=== PATIENT | female | born 2000 | race Caucasian/White ===

== ENCOUNTER 2019-08-20 00:38 | Emergency (ER) | payer MEDICAID, SELFPAY ==
[2019-08-20 00:39] VITALS: BP 125/81; PULSE 71; RESP 16; TEMP 36.7; O2SAT 99; BMI 27.4
--- NOTE | 2019-08-20 01:15 | ED.VIS.GEN ---
History of Present Illness Chief Complaint: Dental Informant: Patient Narrative: Presents with right upper dental pain on and off for the last month. Over the last week it is been more continuous. She has a cavity. She is going to walk into her dentist office on Thursday. She has been using Tylenol and Orajel with minimal relief. Comes in for further evaluation. Current severity is mild to moderate. Past Medical History - Allergies and Home Meds Allergies/Adverse Reactions: Allergies carbamazepine [From Tegretol] Allergy (Verified 08/20/19 00:41) Unknown lithium Allergy (Verified 08/20/19 00:41) Unknown risperidone Allergy (Verified 08/20/19 00:41) Unknown Primary Care Physician: NOT,DEFINED [Primary Care Provider] - Prior records reviewed: Yes Past Medical History: None Surgical History: noncontributory Lives: With Family Smoking Status: Former smoker Alcohol: None Drugs: None Review of Systems General: Denies: Chills, Fever, Sweats Eyes: Denies: Visual changes - bilaterally, Diplopia ENT: Denies: Rhinorrhea, Sore throat Cardiovascular: Denies: Chest pain, Palpitations Respiratory: Denies: Dyspnea, Cough, Dyspnea on exertion Gastrointestinal: Denies: Abdominal pain, Nausea, Vomiting, Diarrhea, Melena, Hematochezia Genitourinary: Denies: Dysuria, Hematuria, Frequency Musculoskeletal: Denies: Back pain, Extremity Pain Skin: Denies: Rash, Wounds Neurological: Denies: Headache, Weakness, Numbness Physical Exam Vital Signs/Narrative: Vital Signs Temp Pulse Resp BP Pulse Ox 08/20/19 00:39 98.1 F 71 16 125/81 H 99 General: Well nourished, Well developed, No Acute Distress Head: Normocephalic, Atraumatic Eyes: Perrl, EOMI ENT: Moist mucous membranes, No rhinorrhea, - - Patient's right upper first premolar with a cavity noted. No swelling to the gumline. Tenderness to the tooth. No dental fracture. No abscess to the gumline Neck: Supple, Nontender Cardiovascular: Regular rate, Regular rhythm, No murmurs Respiratory: No distress, CTA bilaterally, Chest nontender Abdomen: Soft, Nontender, Nondistended, Normal bowel sounds Back: Nontender, Normal Inspection Extremities: Nontender, No edema Skin: Normal color, No rash Neurological: Alert, Oriented x3, Cranial nerves II-XII grossly intact, Normal Strength, Normal Sensation Psychological: Normal affect, Normal Mood Diagnostic/Tx/Re-eval - Medical Decision Making Given ibuprofen amoxicillin will continue these at home and follow-up with dentistry for suspected pulpitis or early apical abscess. We will follow-up as an outpatient ED Disposition - Plan for ED Patient: Disposition: Home or Assisted Living Diagnosis: Dental infection Instructions: Dental Cavity Prescriptions: Amoxicillin 500 mg PO TID #30 tab Prescription Printed Ibuprofen 800 mg PO TID #30 tab Prescription Printed Additional Instructions: Follow with your dentist.
[2019-08-20] MEDS: Ibuprofen 400 MG Tablet 800 MG PO (01:26)
[2019-08-20] MEDS: AMOXICILLIN 500 MG CAPSULE PO (01:26)
--- NOTE | 2019-08-20 01:29 | ED.RN ---
THIS NURSE REVIEWED D/C INSTRUCTIONS WITH PT. PT VERBALIZED UNDERSTANDING OF INSTRUCTIONS. PT DENIES FURTHER NEEDS OR QUESTIONS AT THIS TIME.
== END 2019-08-20 01:29 | disposition home or self-care (01) ==
LOC: ED 01:22
PROVIDERS: Emergency Provider Emergency Medicine
DX: K04.7 Periapical abscess without sinus (principal); K02.9 Dental caries, unspecified; Z88.8 Allergy status to other drugs, medicaments and biological substances; Z87.891 Personal history of nicotine dependence
CPT/HCPCS: 99283